=== PATIENT | male | born 1945 | race African-American/Black ===

== ENCOUNTER 2017-04-15 22:34 | Emergency (ER) | payer MEDICARE, OTHER ==
[~2017-04-15] VITALS: Ht 172.7 cm; Wt 81.6 kg
[2017-04-15 23:26] LABS: BASO % 0 % (0-3); EOS % 1 % (0-3); HEMATOCRIT 37.9 % (39.0-53.0); HEMOGLOBIN 12.1 g/dL (13.0-17.5); LYMPH # 1.6 x10^3/uL (1.0-4.8); LYMPH % 11 % (24-48); MEAN CORPUSCULAR HEMOGLOBIN 30 pg (25-35); MEAN CORPUSCULAR HGB CONC 32 g/dL (31-37); MEAN CORPUSCULAR VOLUME 94 fL (79-100); MONO % 6 % (0-9); NEUT % 81 % (31-73); PLATELET COUNT 228 x10^3/uL (140-400); RED BLOOD COUNT 4.04 x10^6/uL (4.30-5.70); RED CELL DISTRIBUTION WIDTH 14.6 % (11.5-14.5); WHITE BLOOD COUNT 14.2 x10^3/uL (4.0-11.0)
[2017-04-15 23:39] LABS: CREATININE 1.9 mg/dL (0.7-1.3); GFR 42.5; POTASSIUM 4.2 mmol/L (3.5-5.1)
[2017-04-15 23:45] LABS: ALBUMIN 3.3 g/dL (3.4-5.0); MAGNESIUM 1.6 mg/dL (1.8-2.4); TOTAL PROTEIN 6.6 g/dL (6.4-8.2)
[2017-04-15 23:52] LABS: CKMB MASS 0.8 ng/mL (0.0-3.6)
[2017-04-16] VITALS: BP 162/80
--- NOTE | 2017-04-16 03:34 | PHYS DOC ---
Past Medical History Past Medical History: Diabetes-Type I, Hypertension Additional Past Medical Histor: Pancreatitis, and Pancreatic Cancer Past Surgical History: Other Additional Past Surgical Histo: PANCREATECTOMY Alcohol Use: None Drug Use: None Adult General Chief Complaint Chief Complaint: BLOOD SUGAR PROBLEM [facility] HPI Patient is a 72 year old male who presents with low blood sugar. Pt ate fish and steamed vegetables tonight then took dose of Regular Insulin 8 units at approx 730pm Then approx 30 min later pt was witnessed by to be very sweaty then confused and aggitated. Called EMS on their arrival Accucheck was 21. Pt combative and they were unable to get IV access. An IO was placed in L tibia and then gave glucagon and 1/2 amp D50. Pt mentation and BS improved and transported to ER. Pt denies any pain except at site where IO was placed. Pt states when eats fish usually only takes 5 Units but per she witnessed him dosing self at 8 units. Review of Systems Review of Systems Constitutional: Denies fever or chills [] Eyes: Denies change in visual acuity, redness, or eye pain [] HENT: Denies nasal congestion or sore throat [] Respiratory: Denies cough or shortness of breath [] Cardiovascular: No additional information not addressed in HPI [] GI: Denies abdominal pain, nausea, vomiting, bloody stools or diarrhea [] : Denies dysuria or hematuria [] Musculoskeletal: Denies back pain or joint pain [] Integument: Denies rash or skin lesions [] Neurologic: Denies headache, focal weakness or sensory changes [] Endocrine: Denies polyuria or polydipsia [] Allergies Allergies Allergies Coded Allergies Type Severity Reaction Last Updated Verified Penicillins Allergy Intermediate Rash 04/15/17 Yes Physical Exam Physical Exam Constitutional: Well developed, well nourished, no acute distress, non-toxic appearance. [] HENT: Normocephalic, atraumatic, bilateral external ears normal, oropharynx moist, no oral exudates, nose normal. [] Eyes: PERRLA, EOMI, conjunctiva normal, no discharge. [] Neck: Normal range of motion, no tenderness, supple, no stridor. [] Cardiovascular:Heart rate regular rhythm, no murmur [] Lungs & Thorax: Bilateral breath sounds clear to auscultation [] Abdomen: Bowel sounds normal, soft, no tenderness, no masses, no pulsatile masses. [] Skin: Warm, dry, no erythema, no rash. [] Back: No tenderness, no CVA tenderness. [] Extremities: No tenderness, no cyanosis, no clubbing, ROM intact, no edema. [] Neurologic: Alert and oriented X 3, normal motor function, normal sensory function, no focal deficits noted. [] Psychologic: Affect normal, judgement normal, mood normal. [] Current Patient Data Vital Signs Vital Signs Date Time Temp Pulse Resp B/P (MAP) Pulse Ox O2 Delivery O2 Flow Rate FiO2 04/16/17 00:00 72 162/80 (107) 96 Room Air 04/15/17 22:43 97.6 20 97.6 Lab Values Laboratory Tests Test 04/15/17 23:15 04/15/17 23:45 White Blood Count 14.2 x10^3/uL (4.0-11.0) H Red Blood Count 4.04 x10^6/uL (4.30-5.70) L Hemoglobin 12.1 g/dL (13.0-17.5) L Hematocrit 37.9 % (39.0-53.0) L Mean Corpuscular Volume 94 fL (79-100) Mean Corpuscular Hemoglobin 30 pg (25-35) Mean Corpuscular Hemoglobin Concent 32 g/dL (31-37) Red Cell Distribution Width 14.6 % (11.5-14.5) H Platelet Count 228 x10^3/uL (140-400) Neutrophils (%) (Auto) 81 % (31-73) H Lymphocytes (%) (Auto) 11 % (24-48) L Monocytes (%) (Auto) 6 % (0-9) Eosinophils (%) (Auto) 1 % (0-3) Basophils (%) (Auto) 0 % (0-3) Neutrophils # (Auto) 11.6 x10^3uL (1.8-7.7) H Lymphocytes # (Auto) 1.6 x10^3/uL (1.0-4.8) Monocytes # (Auto) 0.8 x10^3/uL (0.0-1.1) Eosinophils # (Auto) 0.1 x10^3/uL (0.0-0.7) Basophils # (Auto) 0.0 x10^3/uL (0.0-0.2) Sodium Level 141 mmol/L (136-145) Potassium Level 4.2 mmol/L (3.5-5.1) Chloride Level 106 mmol/L (98-107) Carbon Dioxide Level 24 mmol/L (21-32) Anion Gap 11 (6-14) Blood Urea Nitrogen 26 mg/dL (8-26) Creatinine 1.9 mg/dL (0.7-1.3) H Estimated GFR (Cockcroft-Gault) 42.5 BUN/Creatinine Ratio 14 (6-20) Glucose Level 217 mg/dL (70-99) H Calcium Level 9.0 mg/dL (8.5-10.1) Magnesium Level 1.6 mg/dL (1.8-2.4) L Total Bilirubin 1.0 mg/dL (0.2-1.0) Aspartate Amino Transferase (AST) 25 U/L (15-37) Alanine Aminotransferase (ALT) 26 U/L (16-63) Alkaline Phosphatase 83 U/L (46-116) Creatine Kinase 140 U/L (39-308) Creatine Kinase MB (Mass) 0.8 ng/mL (0.0-3.6) Creatine Kinase MB Relative Index 0.6 % (0-4) Troponin I Quantitative < 0.017 ng/mL (0.000-0.055) Total Protein 6.6 g/dL (6.4-8.2) Albumin 3.3 g/dL (3.4-5.0) L Albumin/Globulin Ratio 1.0 (1.0-1.7) Glucose (Fingerstick) 161 mg/dL (70-99) H Laboratory Tests 04/15/17 23:15 Laboratory Tests 04/15/17 23:15 EKG EKG [] Radiology/Procedures Radiology/Procedures [] Impressions: HYPOGLYCEMIA EPISODE Course & Med Decision Making Course & Med Decision Making Pertinent Labs and Imaging studies reviewed. (See chart for details) Pt observed for several hours in ER with consistent BS above 100. Pt no further symptoms. Pt now 3+ hours from time of Regular Insulin. Pt states has NOT taken his usual long acting insulin tonight. Discussed with pt and need for close follow up BS and only take 1/2 dose of Levimer insulin tonight then follow up with PCP Kayla Disclaimer Dragon Disclaimer This electronic medical record was generated, in whole or in part, using a voice recognition dictation system. Departure Departure Impression: Primary Impression: Hypoglycemia Disposition: HOME, SELF-CARE Condition: STABLE Patient Instructions: Hypoglycemia, [id number] Additional Instructions: FOLLOW SUGARS CLOSE USE 1/2 DOSE OF LONG ACTING INSULIN TONIGHT FOLLOW UP WITH YOUR PRIMARY CARE PHYSICIAN TUESDAY FOR RECHECK RETURN IF WORSE OR CHANGE IN SYMPTOMS MANJU CHESTER MD Apr 16, 2017 03:34
--- NOTE | 2017-04-16 12:40 | EKG ---
[facility] [address] [place] [address] Test Date: 2017-04-15 Test Time: 22:38:18 Pat Name: CARMITA ARREOLA Department: Room: Gender: M Electrical Maintenance Engineer: : 1945 Requested By: MANJU CHESTER Order Number: [id number] Reading MD: César George Measurements Intervals [place] Rate: 68 P: -56 MO: 144 QRS: 24 QRSD: 88 T: 65 QT: 380 QTc: 409 Interpretive Statements SINUS RHYTHM NONSPECIFIC ST-T WAVE CHANGES. RI6.01 No previous ECG available for comparison Electronically Signed On 04-18-2017 10:49:16 CDT by César George
== END 2017-04-16 00:38 | disposition home or self-care (01) ==
LOC: ER 22:34
DX: E10.649 Type 1 diabetes mellitus with hypoglycemia without coma (principal); I10 Essential (primary) hypertension; Z85.07 Personal history of malignant neoplasm of pancreas; Z90.410 Acquired total absence of pancreas; Z88.0 Allergy status to penicillin
CPT/HCPCS: 36415; 80053; 82553; 82962; 83735; 84484; 85027; 93005; 99285-25

== ENCOUNTER 2018-06-15 01:15 | Emergency (ER) | payer MEDICARE, OTHER ==
[~2018-06-15] VITALS: Ht 172.7 cm; Wt 77.1 kg
[~2018-06-15 01:15] MED LIST: AMLO5TAB2 PO; INSU100I11 SQ; INSU100I30 SQ; LIPA1CAP8 PO; LOPE2CAP PO; PANT20TA2 PO
--- NOTE | 2018-06-15 01:35 | PHYS DOC ---
Past Medical History Past Medical History: Cancer, Diabetes-Type I, Hypertension, Pancreatitis Additional Past Medical Histor: Pancreatitis, and Pancreatic Cancer Past Surgical History: Other Additional Past Surgical Histo: PANCREATECTOMY Smoking: Cigarettes (The patient is a nonsmoker.) Alcohol Use: Sober Drug Use: None Adult General HPI HPI Patient is a 73 year-old male who lives at home with his , who presents to the emergency department for evaluation. The patient was sitting in a chair this evening, when the patient's noticed him becoming less responsive. She states that he has had episodes of hypoglycemia in the past and she tried to give him some oral glucose, but he slumped out of the chair. She states that he did not fall hard or injure himself, but he became unresponsive and diaphoretic and EMS was called. They found the patient with a blood glucose of 24. They were unable to obtain IV access, so they administered glucagon. The patient arrives in the emergency department and he is obtunded and lethargic but he is able to answer questions very slowly. He knows his name and his age. He denies any recent pain. He is noted to have a dilated right pupil but he had surgery earlier this week on his right eye. He denies any pain. IV access was obtained and the patient was administered dextrose in the emergency department, with improvement in his blood glucose to 200, and moderate improvement in his mental status. At the time of this dictation, 1:30 AM, he is still somewhat somnolent. He denies any pain, but is moving all extremities. There are no alleviating or exacerbating factors to his symptoms. The patient states he takes both Humalog and Lantus. He did take his insulin this evening. Review of Systems Review of Systems Constitutional: Denies fever or chills [] Eyes: Denies change in visual acuity, redness, or eye pain [] HENT: Denies nasal congestion or sore throat [] Respiratory: Denies cough or shortness of breath [] Cardiovascular: The patient denies any shortness of breath, chest pain, palpitations, or orthopnea [] GI: Denies abdominal pain, nausea, vomiting, bloody stools or diarrhea [] : Denies dysuria or hematuria [] Musculoskeletal: Denies back pain or joint pain [] Integument: Denies rash or skin lesions [] Neurologic: Denies headache, focal weakness or sensory changes. He was unresponsive upon EMS arrival but is more awake at this time if the blood glucose has been addressed. All other systems were reviewed and found to be within normal limits, except as documented in this note. Current Medications Current Medications Current Medications Medications (Trade) Dose Ordered Sig/Shane Start Time Stop Time Status Last Admin Dose Admin Dextrose (Dextrose 50%-Water Syringe) 25 gm 1X ONCE 06/15/18 02:00 06/15/18 02:01 DC 06/15/18 01:20 25 GM Dextrose/Sodium Chloride 1,000 ml @ 125 mls/hr 1X ONCE 06/15/18 02:00 06/15/18 09:59 06/15/18 01:27 125 MLS/HR Allergies Allergies Allergies Coded Allergies Type Severity Reaction Last Updated Verified Penicillins Allergy Intermediate Rash 04/15/17 Yes I S O L A T I O N *CONTACT* Allergy Unknown 10/05/17 Yes Physical Exam Physical Exam PHYSICAL EXAM: CONSTITUTIONAL: Well developed, well nourished HEAD: normocephalic, atraumatic EENT: Right pupil is 7 mm, minimally reactive, the left pupil is 4 mm and reactive. EOMI. Conjunctivae normal color, sclerae non-icteric; moist mucous membranes. NECK: Supple, non-tender; no meningismus. LUNGS: Lungs CTA, breathing even and unlabored. Normal air movement. HEART: Regular rate and rhythm, no murmur CHEST: No deformity; non-tender ABDOMEN: The abdomen is soft, and non-tender, no masses or bruits. EXTREM: Normal ROM; no deformity, no calf tenderness. Normal pulses palpable in all extremities. There is no pedal edema. SKIN: No rash; no diaphoresis NEURO: Lethargic, but oriented to person and place.; CN's grossly intact; strength grossly intact without focal deficit. The patient is able to move all extremities symmetrically. He is able to follow commands. BACK: No CVA TTP. Current Patient Data Vital Signs Vital Signs Date Time Temp Pulse Resp B/P (MAP) Pulse Ox O2 Delivery O2 Flow Rate FiO2 06/15/18 01:15 98.1 57 16 157/83 (107) 100 Nasal Cannula 2.0 98.1 Lab Values Laboratory Tests Test 06/15/18 01:28 8/16/18 01:30 Glucose (Fingerstick) 219 mg/dL (70-99) H White Blood Count 8.3 x10^3/uL (4.0-11.0) Red Blood Count 3.74 x10^6/uL (4.30-5.70) L Hemoglobin 11.8 g/dL (13.0-17.5) L Hematocrit 36.1 % (39.0-53.0) L Mean Corpuscular Volume 97 fL (79-100) Mean Corpuscular Hemoglobin 32 pg (25-35) Mean Corpuscular Hemoglobin Concent 33 g/dL (31-37) Red Cell Distribution Width 14.2 % (11.5-14.5) Platelet Count 151 x10^3/uL (140-400) Neutrophils (%) (Auto) 55 % (31-73) Lymphocytes (%) (Auto) 28 % (24-48) Monocytes (%) (Auto) 15 % (0-9) H Eosinophils (%) (Auto) 2 % (0-3) Basophils (%) (Auto) 1 % (0-3) Neutrophils # (Auto) 4.5 x10^3uL (1.8-7.7) Lymphocytes # (Auto) 2.4 x10^3/uL (1.0-4.8) Monocytes # (Auto) 1.2 x10^3/uL (0.0-1.1) H Eosinophils # (Auto) 0.1 x10^3/uL (0.0-0.7) Basophils # (Auto) 0.1 x10^3/uL (0.0-0.2) Sodium Level 136 mmol/L (136-145) Potassium Level 3.4 mmol/L (3.5-5.1) L Chloride Level 103 mmol/L (98-107) Carbon Dioxide Level 25 mmol/L (21-32) Anion Gap 8 (6-14) Blood Urea Nitrogen 26 mg/dL (8-26) Creatinine 1.9 mg/dL (0.7-1.3) H Estimated GFR (Cockcroft-Gault) 42.4 BUN/Creatinine Ratio 14 (6-20) Glucose Level 162 mg/dL (70-99) H Calcium Level 8.5 mg/dL (8.5-10.1) Magnesium Level 1.9 mg/dL (1.8-2.4) Total Bilirubin 0.9 mg/dL (0.2-1.0) Aspartate Amino Transferase (AST) 24 U/L (15-37) Alanine Aminotransferase (ALT) 23 U/L (16-63) Alkaline Phosphatase 78 U/L (46-116) Creatine Kinase 150 U/L (39-308) Creatine Kinase MB (Mass) 0.8 ng/mL (0.0-3.6) Creatine Kinase MB Relative Index 0.5 % (0-4) Troponin I Quantitative < 0.017 ng/mL (0.000-0.055) [id number]-Type Natriuretic Peptide 126 pg/mL (0-124) H Total Protein 6.8 g/dL (6.4-8.2) Albumin 3.2 g/dL (3.4-5.0) L Albumin/Globulin Ratio 0.9 (1.0-1.7) L Lipase 61 U/L (73-393) L Thyroid Stimulating Hormone (TSH) 0.914 uIU/mL (0.358-3.74) Laboratory Tests 06/15/18 01:30 Laboratory Tests 06/15/18 01:30 EKG EKG [Normal sinus rhythm at a rate of 55 beats for minute, normal axis, first- degree AV block with otherwise normal intervals. There are no acute ischemic ST/ T changes.] Radiology/Procedures Radiology/Procedures [] Course & Med Decision Making Course & Med Decision Making Pertinent Lab studies reviewed. (See chart for details) Patient's blood testing was drawn, after the dextrose was administered, as the initial IV placement for which dextrose was given did not return blood. 3:15 AM: The patient's condition has significantly improved. He is spontaneously awake ambulatory at his baseline and is without complaint at this time. I discussed the option of hospitalization with the patient given that he uses long-acting insulin but he states he wants to go home. He expressed understanding of the potential complications for repeated episodes of hypoglycemia and I instructed the patient to continue to make sure he eats throughout the morning. 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 Return precautions were discussed in detail. [CRITICAL CARE TIME: 45 Minutes, excluding any procedures and care of other patients.] Dragon Disclaimer Kayla Disclaimer This electronic medical record was generated, in whole or in part, using a voice recognition dictation system. Departure Departure Impression: Primary Impression: Hypoglycemia Disposition: 01 HOME, SELF-CARE Condition: IMPROVED Referrals: UNKNOWN PCP NAME (PCP) Patient Instructions: Hypoglycemia (Low Blood Sugar) BRIGITTE ABEL MD Jun 15, 2018 01:35
[2018-06-15 01:46] LABS: BASO # 0.1 x10^3/uL (0.0-0.2); BASO % 1 % (0-3); EOS # 0.1 x10^3/uL (0.0-0.7); EOS % 2 % (0-3); HEMATOCRIT 36.1 % (39.0-53.0); HEMOGLOBIN 11.8 g/dL (13.0-17.5); LYMPH # 2.4 x10^3/uL (1.0-4.8); LYMPH % 28 % (24-48); MEAN CORPUSCULAR HEMOGLOBIN 32 pg (25-35); MEAN CORPUSCULAR HGB CONC 33 g/dL (31-37); MEAN CORPUSCULAR VOLUME 97 fL (79-100); MONO # 1.2 x10^3/uL (0.0-1.1); MONO % 15 % (0-9); NEUT # 4.5 x10^3uL (1.8-7.7); NEUT % 55 % (31-73); PLATELET COUNT 151 x10^3/uL (140-400); RED BLOOD COUNT 3.74 x10^6/uL (4.30-5.70); RED CELL DISTRIBUTION WIDTH 14.2 % (11.5-14.5); WHITE BLOOD COUNT 8.3 x10^3/uL (4.0-11.0)
[2018-06-15 02:00] LABS: CALCIUM 8.5 mg/dL (8.5-10.1); CREATININE 1.9 mg/dL (0.7-1.3); GFR 42.4; POTASSIUM 3.4 mmol/L (3.5-5.1)
[2018-06-15] MEDS ORDERED: DEXTROSE 50% 25 GM / 50ML DISP.SYRIN. IV ONE (02:00)
[2018-06-15] MEDS ORDERED: IV DEXTROSE 5% - 0.9 % NACL 1,000 ML IV ONE (02:00)
[2018-06-15 02:08] LABS: ALBUMIN 3.2 g/dL (3.4-5.0); ALBUMIN/GLOBULIN RATIO 0.9 (1.0-1.7); MAGNESIUM 1.9 mg/dL (1.8-2.4); TOTAL BILIRUBIN 0.9 mg/dL (0.2-1.0); TOTAL PROTEIN 6.8 g/dL (6.4-8.2)
[2018-06-15 03:30] VITALS: BP 158/78
--- NOTE | 2018-06-15 04:08 | EKG ---
[facility] [address] [place] [address] Test Date: 2018-06-15 Test Time: 02:09:22 Pat Name: CARMITA ARREOLA Department: Room: Gender: M Commercial Pest Control Representative: : 1945 Requested By: BRIGITTE ABEL Order Number: [id number] Reading MD: Uri Rizvi MD Measurements Intervals [place] Rate: 55 P: 54 [place]: 248 QRS: 7 QRSD: 86 T: 42 QT: 422 QTc: 405 Interpretive Statements SINUS RHYTHM PROLONGED [place] INTERVAL Electronically Signed On 06-15-2018 15:11:01 CDT by Uri Rizvi MD
== END 2018-06-15 03:48 | disposition home or self-care (01) ==
LOC: ER 01:15
DX: E10.649 Type 1 diabetes mellitus with hypoglycemia without coma (principal); I10 Essential (primary) hypertension; Z90.410 Acquired total absence of pancreas; Z88.0 Allergy status to penicillin; Z91.041 Radiographic dye allergy status
CPT/HCPCS: 36415; 80053; 82553; 82962; 83690; 83735; 83880; 84443; 84484; 85025; 93005; 96361; 96374; J7042; 99285-25